=== PATIENT | female | born 1955 | race Caucasian/White ===

== ENCOUNTER 2020-03-04 19:39 | Emergency (ER) | payer OTHER ==
[~2020-03-04] VITALS: Ht 162.6 cm; Wt 46.3 kg
[~2020-03-04 19:39] MED LIST: CLEOCIN HCL150 MG PO; NORCO 5-325 TA1 EACH PO
[2020-03-04] MEDS ORDERED: CLEOCIN HCL300 MG PO (20:34)
[2020-03-04 20:40] VITALS: BP 138/86
== END 2020-03-04 20:58 | disposition home or self-care (01) ==
LOC: ER 19:39
DX: K04.7 Periapical abscess without sinus (principal); F17.210 Nicotine dependence, cigarettes, uncomplicated; Z88.0 Allergy status to penicillin; Z88.6 Allergy status to analgesic agent